=== PATIENT | female | born 1975 | race African-American/Black ===

== ENCOUNTER → 2016-11-01 | Outpatient (CLI) | payer MEDICAID ==
--- NOTE | 2016-11-06 15:53 | MA ---
Screening Digital Mammogram With iCAD Analysis Clinical Indications: Routine screening. Technique: Standard cephalocaudal projections are obtained. Digital breast tomosynthesis was performe d in the MLO projection with reconstruction at 1.0 mm slice thickness and composite MLO views reconst ructed. This examination is processed by the iCAD computer aided detection system. Comparison: July 2014. Breast density: Type C: Heterogeneously dense. Findings: CAD was reviewed. No masses, suspicious calcifications or secondary signs of malignancy are seen. There has been no significant change in the appearance of either breast. Impression: Negative mammogram. BI-RADS 1. Recommendation: Routine mammographic screening in one year as long as physical examination is negativ e in this patient with heterogeneously dense breast parenchyma. [facility] will send a result letter to the patient. Negative mammography should not preclude additional workup of a clinically suspicious finding. The patient's information is entered into a reminder system with a target due date for her next mammo gram.
== END ==
LOC: FIMAGING 10:15
DX: Z12.31 Encounter for screening mammogram for malignant neoplasm of breast (principal)
CPT/HCPCS: G0202

== ENCOUNTER → 2016-11-10 | Outpatient (CLI) | payer MEDICAID ==
--- NOTE | 2016-11-10 08:57 | US ---
Pelvic Sonogram (With Transvaginal) Clinical Indications: 41-year-old female G6, P3 with menorrhagia. Pre-IUD placement. Technique: Transabdominal and endovaginal exams. Transvaginal exam is added to better evaluate the uterus and ovaries. Findings: The uterus measures 6.6 x 7.9 x 10.9 cm with a 6 mm endometrial stripe. There is a heteroge neous intramural fibroid measuring 2.5 x 2.9 x 2.3 cm in the superior anterior left myometrium. Trace free fluid is noted in the cul-de-sac. The right ovary measures 2.8 x 2.3 x 2.0 cm with normal color Doppler flow and normal resistive index of 0.37. Left ovary measures 2.4 x 1.8 x 1.6 cm with normal color Doppler flow and resistive index of 0.58. Impression: Uterine fibroid. Otherwise, unremarkable.
== END ==
LOC: FIMAGING 07:55
PROVIDERS: ATTEND Physician Assistant
DX: D25.9 Leiomyoma of uterus, unspecified (principal)

== ENCOUNTER 2016-11-26 16:22 | Emergency (ER) | payer MEDICAID ==
[2016-11-26 16:26] VITALS: BP 152/101; PULSE 88; RESP 18; TEMP 98.1; O2SAT 97
--- NOTE | 2016-11-26 17:18 | EDPHY ---
H & P Smoking Status: Never smoked Time Seen by Provider: 11/26/16 17:05 HPI/ROS: CHIEF COMPLAINT: left elbow pain HISTORY OF PRESENT ILLNESS: 41-year-old female presents complaining of left elbow pain times 2-3 months that radiates down her forearm. Patient denies trauma, she reports pain that radiates down her forearm and intermittent tingling her elbow. She denies neck pain, shoulder pain. Patient is right-hand- dominant. No fevers. No swelling. (Cher Willis) Physical Exam: GEN: Awake, alert, oriented, no acute distress RESP: nl resp effort MSK: Left elbow with tenderness to palpation over medial epicondyle, pain with resisted wrist flexion and ulnar deviation, no swelling, full active flexion, extension, pronation and supination of left elbow, 2+ radial pulses, sensation intact to light touch, cap refill less than 2 seconds, negative Spurling compression, no cervical spine tenderness to palpation SKIN: No break in skin (Cher Willis) Constitutional: Initial Vital Signs Temperature (C) 36.7 C 11/26/16 16:23 Heart Rate 88 11/26/16 16:23 Respiratory Rate 18 11/26/16 16:23 Blood Pressure 152/101 H 11/26/16 16:23 O2 Sat (%) 97 11/26/16 16:23 O2 Delivery Mode Room Air Allergies/Adverse Reactions: latex Allergy (Intermediate, Verified 11/26/16 16:26) swells up tramadol Allergy (Mild, Verified 11/26/16 16:26) Rash Home Medications: Medication Instructions Recorded NK [No Known Home Meds] 11/26/16 MDM/Departure - MDM ED Course/Re-evaluation: The patient was evaluated and managed by the midlevel provider. My co-signature indicates that I have reviewed this chart and I agree with the findings and plan of care as documented. I am the secondary supervising physician. (Naya Alicia) Differential Diagnosis: Diagnosis considered but not limited to medial epicondylitis, cervical stenosis , fracture, septic joint, herniated disc. (Cher Willis) - Depart Disposition: Home, Routine, Self-Care Clinical Impression: Medial epicondylitis of left elbow Condition: Good Instructions: Tennis Elbow (ED) Additional Instructions: Rest, ice, elevate, take 600mg of ibuprofen every 8 hours with food for 3-5 days as needed for pain and swelling. Follow up with orthopedist for symptoms that are not improving in 7-10 days. Return to the emergency department for any numbness, tingling, discoloration of you limb or other concerns. Referrals: Maximo Gonzalez MD [Medical Doctor] - As per Instructions (Orthopedist on-call)
== END 2016-11-26 17:25 | disposition home or self-care (01) ==
DX: M77.02 Medial epicondylitis, left elbow (principal); Z91.040 Latex allergy status